=== PATIENT | female | born 1965 | race Caucasian/White ===

== ENCOUNTER → 2016-12-26 | Outpatient (CLI) | payer OTHER ==
[2016-12-27 09:24] LABS: BASOPHIL % 0.4 %; EOSINOPHIL # 0.2 K/uL (0.0-0.5); EOSINOPHIL % 1.8 %; HEMATOCRIT 43.3 % (33.0-46.0); HEMOGLOBIN 14.2 g/dL (10.0-15.0); IMMATURE GRANULOCYTE % 0.2 %; LYMPHOCYTE # 2.8 K/uL (0.8-4.0); LYMPHOCYTE % 29.6 %; MCH 30.3 pg (27.0-34.0); MCHC 32.8 gm/dL (32.0-36.5); MCV 92.3 fl (83.0-98.0); MONOCYTE # 0.6 K/uL (0.0-1.0); MONOCYTE % 6.7 %; MPV 10.5 fl (9.4-12.4); NEUTROPHIL # (ANC) 5.7 K/uL (1.8-7.8); NEUTROPHIL % 61.3 %; NRBC % 0 /100WBC (0-0.00); PLATELET COUNT 336 K/uL (150-450); RBC 4.69 M/uL (3.50-5.50); RDW-CV 12.5 % (11.9-14.6); WBC 9.3 K/uL (4.0-11.0)
[2016-12-27 09:33] LABS: ANION GAP 11.8 (10.0-19.0); BLOOD UREA NITROGEN 17 mg/dL (6-24); CALCIUM 8.8 mg/dL (8.5-10.5); CHLORIDE 109 mMol/L (96-110); CO2 26 mMol/L (22-32); CREATININE 0.8 mg/dL (0.5-1.1); ESTIMATED GFR (MDRD EQUATION) > 60; POTASSIUM 3.8 mMol/L (3.7-5.1); SODIUM 143 mMol/L (135-145)
== END | disposition disaster alternative care site (69) ==
LOC: LNHI 18:01
PROVIDERS: Internal Medicine
DX: I47.1 Supraventricular tachycardia (principal); I10 Essential (primary) hypertension